=== PATIENT | male | born 1975 | race Caucasian/White ===

== ENCOUNTER → 2019-09-11 09:48 | Outpatient (CLI) | payer OTHER, SELFPAY ==
--- NOTE | ~2019-09-11 | XR_ITS ---
EXAMINATION: XR chest 2V DATE: 09/11/2019 10:11 INDICATION: Tobacco use. TECHNIQUE: Frontal and lateral views of the chest were obtained. COMPARISON: None. FINDINGS: The chest demonstrates clear lungs without pneumonia, pleural effusion, or pneumothorax. Th e heart size is normal. IMPRESSION: 1. No acute cardiopulmonary disease. Reviewed, dictated and finalized at location B. GER BEAUTY
== END ==
PROVIDERS: PCP Emergency Medicine; Visit Provider Emergency Medicine
DX: Z72.0 Tobacco use (principal)
CPT/HCPCS: 71046

== ENCOUNTER → 2022-06-21 09:12 | Outpatient (CLI) | payer OTHER, SELFPAY ==
--- NOTE | ~2022-06-21 | XR_ITS ---
EXAMINATION: XR chest 2V 06/21/2022 09:36 INDICATION: Tobacco use PROCEDURE: 2 view chest COMPARISON: Comparison to multiple prior studies sequentially, with oldest reviewed study dated 09/11. FINDINGS: The lungs are clear. The cardiomediastinal silhouette is within normal limits. There are no pleural effusions. There is no pneumothorax suspected. IMPRESSION: 1: NO ACUTE CARDIOPULMONARY DISEASE. Reviewed, dictated and finalized at location A.
== END ==
PROVIDERS: PCP Emergency Medicine; Visit Provider Emergency Medicine
DX: Z12.2 Encounter for screening for malignant neoplasm of respiratory organs (principal); Z87.891 Personal history of nicotine dependence
CPT/HCPCS: 71046

== ENCOUNTER 2023-06-25 16:58 | Emergency (ER) | payer OTHER, SELFPAY ==
--- NOTE | ~2023-06-25 | XR_ITS ---
EXAM: [id number] DATE: 06/25/2023 18:45 HISTORY: per Dr Rees sunrise view . COMPARISON: Same date at 6:07 PM. FINDINGS: A single sunrise view of the left knee is provided. No sagittally oriented fracture detect ed in the left patella. Enthesophytes along the anterior surface of the patella. IMPRESSION: No sagittal oriented patellar fracture. The patellar injury appears to be limited to a sm all avulsive fragment at the insertion of the quadriceps, as seen in the prior study. Reviewed, dictated and finalized at location K. AINER OPERATOR IMPRESSION: No sagittal oriented patellar fracture. The patellar injury appears to be limited to a small avulsive fragment at the insertion of the quadriceps, as seen in the prior study.
--- NOTE | ~2023-06-25 | XR_ITS ---
EXAM: XR knee LT 3V DATE: 06/25/2023 18:11 HISTORY: left lateral knee pain today ? etiology . COMPARISON: None available. FINDINGS: Normal mineralization. Curvilinear ossific fragment at the insertion of the quadriceps. Naik ggestion of sagittally oriented lucency in the patella in the frontal and oblique views. No lytic or blastic lesion. Joint spaces are maintained. No erosion or periosteal change. Moderate joint effusion . IMPRESSION: Avulsion fracture at the quadriceps insertion. Additional possible sagittally oriented pa tellar fracture. Correlate with point tenderness. Consider a sunrise view of the patella for further evaluation. Reviewed, dictated and finalized at location K. MEASURER IMPRESSION: Avulsion fracture at the quadriceps insertion. Additional possible sagittally oriented patellar fracture. Correlate with point tenderness. Conside r a sunrise view of the patella for further evaluation.
[2023-06-25 17:20] VITALS: BP 141/87; PULSE 91; RESP 16; TEMP 37.4; O2SAT 99
[2023-06-25 17:28] VITALS: BP 141/87; PULSE 91; RESP 16; TEMP 37.4; O2SAT 99
--- NOTE | 2023-06-25 18:31 | PC.NURSE ---
back to xray for additional films per rad. tech.
--- NOTE | 2023-06-25 18:37 | ED.GENADULT ---
HPI - General Adult General Chief complaint: Extremity Injury, Lower Stated complaint: left knee painful Source: patient Mode of arrival: ambulatory Limitations: no limitations History of Present Illness HPI narrative: Patient presents for evaluation of left knee pain. He indicates he has had pain in left knee for about 20 years. He cannot identify any initial precipitating injury or event that caused his symptoms. 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 He states he came home from work today with significant worsening of his pain. At the present time he rates his pain 5/10 in severity but it increases to 10/10 with certain movements. No descriptive quality to the pain. No radicular component, no paresthesias. He is not taking any medication to assist with the symptoms. He contacted his primary care provider and has an appointment with them 2 days from now. He came in today because he knew his PCP would have him get an x ray. Related Data Home Medications Medication Instructions Recorded Confirmed fluoxetine 20 mg capsule mg 06/25/23 Allergies Allergy/AdvReac Type Severity Reaction Status Date / Time naproxen Allergy Severe extreme Unverified 06/25/23 17:06 shortness of breath phenytoin Allergy Intermediate HIVES Unverified 06/25/23 17:06 Review of Systems Review of Systems: CONSTITUTIONAL: Denies fever, chills, or sweats. EYES: Denies visual changes, redness, or discharge. ENT: Denies rhinorrhea, congestion, sore throat, or otalgia. CARDIOVASCULAR: Denies chest pain, palpitations, or edema. RESPIRATORY: Denies cough or dyspnea. GASTROINTESTINAL: Denies abdominal pain, nausea, vomiting, or diarrhea. GENITOURINARY: Denies dysuria or hematuria. SKIN: Denies rash or itching. MUSCULOSKELETAL: Reports left knee pain. Denies back pain NEUROLOGIC: Denies headache, numbness, dizziness, or weakness. PSYCHIATRIC: Denies anxiety or depression. [facility] Past Medical History Medical History (Updated 06/25/23 @ 19:50 by Ermias Malcolm, STEFANIA, NAYLA) Closed fracture of left knee region Closed fracture of left patella Knee fracture, left No significant past medical history Surgical History Surgical History No pertinent past surgical history Family History Family History Mother Family history non-contributory Social History Social History Smoking packs per day: 0.5 Smoking cigarettes per day: 10.0 Smoking status: Current every day smoker Tobacco type: cigarettes Alcohol intake: former Living arrangements: with family Gender identity (if verbalized by the patient): Male Spiritual care concerns: No Exam Narrative: GENERAL: Well-appearing, well-nourished, and in no acute distress. HEAD: Normocephalic, atraumatic. EYES: PERRLA and EOMI. ENT: Nares clear, no rhinorrhea or epistaxis. Mucous membranes moist. Oropharynx without tonsillar hypertrophy exudate or other lesions. Bilateral TMs pearly monae nonbulging NECK: Supple. No adenopathy or masses. No carotid bruits or JVD CHEST: Clear to auscultation. No respiratory distress. No wheezes rales or rhonchi HEART: Regular rate and rhythm. No murmur heard. Normal peripheral pulses. ABDOMEN: Soft, nontender, nondistended, normal active bowel sounds. EXTREMITIES: No tenderness noted in the left knee. Trace swelling present. No crepitus or deformity. Full range of motion intact but extends his left knee with hesitancy secondary to pain SKIN: Warm, dry, no rash. NEURO: No focal deficits. Alert and oriented x3. PSYCH: Normal mood and affect. Course Course Emergency Course: This is a 47-year-old male who presented for evaluation of left knee pain. X-ray suggests avulsion fracture in the left quadriceps tendon region. Provided with
== END 2023-06-25 19:55 | disposition home or self-care (01) ==
PROVIDERS: Emergency Provider Nurse Practitioner; PCP Emergency Medicine
DX: S82.002A Unspecified fracture of left patella, initial encounter for closed fracture (principal); X58.XXXA Exposure to other specified factors, initial encounter; F17.210 Nicotine dependence, cigarettes, uncomplicated
CPT/HCPCS: 73560; 73562; 99214; G0463; L1830

== ENCOUNTER 2024-09-14 15:17 | Emergency (ER) | payer OTHER, SELFPAY ==
--- NOTE | ~2024-09-14 | XR_ITS ---
EXAMINATION: XR foot LT min 3V DATE: 09/14/2024 15:47 INDICATION: Left foot injury. TECHNIQUE: 4 views of left foot were obtained. COMPARISON: None. FINDINGS: Alignment is normal. There is a nondisplaced transverse fracture of tuft of fifth distal ph alanx. There is ankylosis of fifth distal interphalangeal joint. Other joint spaces are normal. There is an enthesophyte of posterior aspect of calcaneal tuberosity. IMPRESSION: 1. Transverse fracture of tuft of fifth distal phalanx. Reviewed, dictated and finalized at location A. R SETTER
[2024-09-14 15:23] VITALS: BP 124/81; PULSE 80; RESP 20; TEMP 36.5; O2SAT 100
--- NOTE | 2024-09-14 15:37 | ED_ITS ---
HPI - Extremity Injury (Lower) General Chief Complaint: Extremity Injury, Lower Stated Complaint: L 5TH TOE INJURY Time Seen by Provider: 09/14/24 15:30 Focused HPI: Patient is a 48 year male who presents to the ER with complaints of injuring his left 5th digit on his foot. He reports he was using a tile cutter to break up ice when he slipped and the tile cutter went into his toe. Patient endorses significant pain and believes he cut his toe off. He reports looking at the injury will cause him to feel nauseated. Patient endorses a history of high blood pressure and prediabetes. He denies any pain in the left ankle, left leg, left calf, or uncontrolled bleeding. GENERAL: Well-appearing, well-nourished, and in acute distress d/t pain. HEAD: Normocephalic, atraumatic. CHEST: Clear to auscultation. ?No respiratory distress. HEART: Regular rate and rhythm.? NEURO: ?Alert and oriented x3. SKIN: 1 cm laceration in between pt's 4th and 5th digits on his L foot. Bleeding controlled. Patient screened in triage and initial orders placed.? ?Additional care and disposition to be based upon?diagnostic testing and treatment. Related Data Home Medications ?Medication ?Instructions ?Recorded ?Confirmed ?Last Taken ?Type No Home Medications 07/02/23 07/02/23 Unknown History Allergies Allergy/AdvReac Type Severity Reaction Status Date / Time naproxen Allergy Severe extreme Verified 09/14/24 15:26 shortness of breath phenytoin Allergy Intermediate HIVES Verified 09/14/24 15:26 [facility] Past Medical History Medical History No significant past medical history Surgical History Surgical History History of back surgery Family History Family History Mother No problems noted. Other Cancer Heart disease Social History Social History Smoking packs per day: 0.5 Smoking cigarettes per day: 10.0 Smoking status: Current every day smoker Tobacco type: cigarettes Alcohol intake: former Substance use type: does not use Lack of Transportation: No Lack of Food: Often True Current Housing: I Do Not Have Housing Concerned About Future Housing: YES Difficulty Paying Gas/Electric Bills: YES Difficulty Paying for Meds: YES Currently Unemployed: No Education: Trade/Vocational Certificate Difficulty w/ Childcare or Family Care: No Living arrangements: with family Occupation/Education: occupation Additional occupation/education comments: self employed- [employer] Gender identity (if verbalized by the patient): Male Spiritual care concerns: No Course Vital Signs Vital signs: Vital Signs Temperature 36.5 C 09/14/24 15:23 Pulse Rate 80 09/14/24 15:23 Respiratory Rate 20 09/14/24 15:23 Blood Pressure 124/81 09/14/24 15:23 Pulse Oximetry 100 09/14/24 15:23 Oxygen Delivery Room Air 09/14/24 15:23 Temperature 36.5 C 09/14/24 15:23 Pulse Rate 80 09/14/24 15:23 Respiratory Rate 20 09/14/24 15:23 Blood Pressure 124/81 09/14/24 15:23 Pulse Oximetry 100 09/14/24 15:23 Oxygen Delivery Room Air 09/14/24 15:23 Discharge Plan Discharge Clinical Impression: Closed fracture of fifth toe of left foot Patient Disposition: Elopement After Seen by Prov Condition: Stable Patient Language: Samoan Prescriptions: No Action No Home Medications Follow-up/Referrals: Jairo Henriquez MD [Primary Care Provider] -
--- OUTSIDE RECORDS SUMMARY | 2024-09-14 16:05 | XMS_ITS | Clinical Summary ---
Author Organization [facility] Address [address] [place] [address] Care Team Providers Care Arboriculture Instructor Name Role Phone Jairo Henriquez MD Primary Care Provider [phone] Source Comments [facility] Affiliates and Associated Physician Practices is amultiple site organization consisting of ambulatory clinics and hospital sitesin [place], [place], [place] and [place]. This disclosure is being madepursuant to the Care Everywhere program and may not contain all information available regarding this patient. Last updated 18.[facility] Allergies Active Allergy Reactions Criticality Noted Date Comments Naproxen Shortness of Breath High 03/02/2019 Phenytoin Itching 03/02/2019 Medications Be aware that medications may not be up to date on this document. Always verify current medications with the patient. No known medications Family History Medical History Relation Name Comments Cancer - Colon Father Cancer - Lung Father Cancer - Stomach Father Cancer - Breast Mother Relation Name Status Comments Father Mother Social History Tobacco Use Types Packs/Day Years Used Date Smoking Tobacco: Every Day Cigarettes Smokeless Tobacco: Current Chew Alcohol Use Standard Drinks/Week Comments Yes 0 (1 standard drink = 0.6 oz pur e alcohol) Socially - once a month Sex and Gender Information Value Date Recorded Sex Assigned at Not on file Gender Identity Not on file Sexual Orientation Not on file Last Filed Vital Signs Vital Sign Reading Time Taken Comments Blood Pressure 154/93 01/20/2020 2:52 PM CDT Pulse 88 01/20/2020 2:52 PM CDT Temperature 36.4 ??C (97.5 ??F) 01/20/2020 2:52 PM CD T Respiratory Rate 18 01/20/2020 2:52 PM CDT Oxygen Saturation 96% 01/20/2020 2:52 PM CDT Inhaled Oxygen Concentration - - Weight - - Height - - Body Mass Index - - Plan of Treatment Health Maintenance Due Date Last Done Comments COLOGUARD (AGES 45-75) - COL ON CA SCREENING 1977 COLON MONITORING 1977 COLONOSCOPY - COLON CA SCREENING 1977 CT COLONOGRAPHY - COLON CA SCREENING 1977 Colorectal Cancer Screening 1977 FIT - COLON CA SCREENING 1977 FLEX SIG - COLON CA SCREENING 1977 LIPID TESTING 1977 HIV SCREENING 1992 DTAP/TDAP/TD VACCINES (1 - Tdap) 1996 HEPATITIS B VACCINE (1 of 3 - 19+ 3-dose series) 1996 PNEUMOCOCCAL VACCINE (1 of 2 - PCV) 1996 COVID-19 VACCINE ( - 2023-2 5 season) 2024 INFLUENZA VACCINE (#1) 2024 DEPRESSION SCREENING 08/19/2024 ZOSTER VACCINE (1 of 2) 11/06/2027 HEPATITIS C SCREENING Completed 01/20/2020 HIB VACCINE Aged Out No longer eligi ble based on patient's age to complete this topic HPV VACCINE Aged Out No longer eligi ble based on patient's age to complete this topic MENINGOCOCCAL (Group B) VACCINE Aged Out No longer eligible based on patient's age to complete this topic MENINGOCOCCAL VACCINE Aged Out No sherin kendra eligible based on patient's age to complete this topic Procedures Procedure Name Priority Date/Time Associated Diagnosis Comments HEPATITIS SCREEN ACUTE Routine 01/20/2020 3:22 PM CDT Rheumatoid factor positive from Last 3 Months or Most Recently Relevant to Health Maintenance Results * HEPATITIS SCREEN ACUTE (01/20/2020 3:22 PM CDT) Hepatitis A Virus Antibody IgM Negative Negative [facility] INSURANCE BILL Hepatitis B Virus Surface Antigen Negative Negative [facility] INSURANCE BILL Hepatitis B Core Virus Antibody IgM Negative Negative [facility] INSURANCE BILL Hepatitis C Antibody <0.1 0.0 - 0.9 s/co ratio [facility] INSURANCE BILL Comment: ? Negative: ? < 0.8 ?Indeterminate: 0.8 - 0.9 ? Positive: ? > 0.9 ? . ?The CDC recommends that a positive HCV antibody result ?be followed up with a HCV Nucleic Acid Amplification ?test (580842). Blood BLOOD SPECIMEN / Unknown 01/20/2020 3:22 PM CDT 01/20/2020 Narrative Resulting Agency Comment Lab Testing performed at: [facility] [address] ??[facility] [id number] Bob العراقي MD LAB - CHEMISTRY OR DERABLES [facility] INSURANCE BILL [address] [place] [address] from Last 3 Months or Most Recently Relevant to Health Maintenance Care Teams Arboriculture Instructor Relationship Specialty Start Date End Date Jairo Henriquez MD [facility] [address] [facility] [address] [place], [place] [id number] PCP - General Family Medicine 05/26/19
--- OUTSIDE RECORDS SUMMARY | 2024-09-14 16:05 | XMS_ITS | Patient Health Summary ---
Author Organization [facility] Address [address] [place] [address] Care Team Providers Care Records Management Associate Name Role Phone Jairo Henriquez MD Primary Care Provider [phone] [facility],non-owned Affiliates and Associated Physician Practices is amultiple site organization consisting of ambulatory clinics and hospital sitesin [place], [place], [place] and [place]. This disclosure is being madepursuant to the Care Everywhere program and may not contain all information available regarding this patient. Last updated 18.[facility] Allergies * Naproxen(Shortness of Breath) -High Criticality * Phenytoin(Itching) Medications Be aware that medications may not be up to date on this document. Always verify current medications with the patient. No known medications Social History Tobacco Use Types Packs/Day Years [...] - - Body Mass Index - - Procedures * ANTHONY BLOOD SCREEN W/REFLEX TITER(Performed 01/20/2020) Performed for Rheumatoid factor positive * COMPLEMENT C3 C4 PANEL(Performed 01/20/2020) Performed for Rheumatoid factor positive * ANGIOTENSIN CONVERTING ENZYME BLOOD(Performed 01/20/2020) Performed for Rheumatoid factor positive * HEPATITIS SCREEN ACUTE(Performed 01/20/2020) Performed for Rheumatoid factor positive * CYCLIC CITRUL PEPTIDE ANTIBODY IGG/IGA (CCP)(Performed 01/20/2020) Performed for Rheumatoid factor positive * RHEUMATOID FACTOR BLOOD QUANTITATIVE(Performed 01/20/2020) Performed for Rheumatoid factor positive * C-REACTIVE PROTEIN(Performed 01/20/2020) Performed for Rheumatoid factor positive * ERYTHROCYTE SEDIMENTATION RATE(Performed 01/20/2020) Performed for Rheumatoid factor positive Results * CYCLIC CITRUL PEPTIDE ANTIBODY IGG/IGA (CCP) (01/20/2020 3:22 PM CDT) CCP Antibodies IgG/IgA 6 0 - 19 units [facility] INSURANCE BILL Comment: ? Negative ? <20 ? Weak positive ?20 - 39 ? Moderate positive ??40 - 59 ? Strong positive ?>59 Blood BLOOD SPECIMEN / Unknown 01/20/2020 3:22 PM CDT 01/20/2020 Narrative Resulting Agency Comment Lab Testing performed at: [address] ??[facility] [id number] Bob العراقي MD LAB - SEROLOGY ORD ERABLES Performing Organization Address [facility] de Phone Number [facility] INSURANCE BILL [address] [place] [address] * (ABNORMAL) RHEUMATOID FACTOR BLOOD QUANTITATIVE (01/20/2020 3:22 PM CDT) Pathologist [facility] Rheumatoid Factor 222.5(H) 0.0 - 13.9 IU/mL [facility] INSURANCE BILL Comment: Results confirmed on dilution. Blood BLOOD SPECIMEN / Unknown 01/20/2020 3:22 PM CDT 01/20/2020 Narrative Resulting Agency Comment Lab Testing performed at: [facility] [address] ??[facility] [id number] Bob العراقي MD LAB - CHEMISTRY OR DERABLES Performing Organization Address [facility] de Phone Number [facility] INSURANCE BILL [address] [place] [address] * C-REACTIVE PROTEIN (01/20/2020 3:22 PM CDT) Pathologist [facility] C-Reactive Protein 2 0 - 10 mg/L [facility] INSURANCE BILL Blood BLOOD SPECIMEN / Unknown 01/20/2020 3:22 PM CDT 01/20/2020 Narrative Resulting Agency Comment Lab Testing performed at: [facility] [address] ??[facility] [id number] Bob العراقي MD LAB - CHEMISTRY OR DERABLES Performing Organization Address [facility] de Phone Number [facility] INSURANCE BILL [address] [place] [address] * ANTHONY BLOOD SCREEN W/REFLEX TITER (01/20/2020 3:22 PM CDT) ANTHONY Negative [facility] INSURANCE BILL Comment: ?Negative ?? <1:80 ?Borderline ??1:80 ?Positive ?? >1:80 Blood BLOOD SPECIMEN / Unknown 01/20/2020 3:22 PM CDT 01/20/2020 Narrative Resulting Agency Comment Lab Testing performed at: [facility] [address] ??[facility] [id number] Bob العراقي MD LAB - CHEMISTRY OR DERABLES Performing Organization Address [facility] Co de Phone Number [facility] INSURANCE BILL [address] [place] [address] * ANGIOTENSIN CONVERTING ENZYME BLOOD (01/20/2020 3:22 PM CDT) Angiotensin-Con verting Enzyme 54 14 - 82 U/L [facility] INSURANCE BILL Blood BLOOD SPECIMEN / Unknown 01/20/2020 3:22 PM CDT 01/20/2020 Narrative Resulting Agency Comment Lab Testing performed at: [facility] [employer] [address] ??[facility] [id number] Bob العراقي MD LAB - CHEMISTRY OR DERABLES Performing Organization Address [facility] de Phone Number [facility] INSURANCE BILL [address] [place] [address] * ERYTHROCYTE SEDIMENTATION RATE (01/20/2020 3:22 PM CDT) Erythrocyte Sedimentation Rate Westergren 14 0 - 15 mm/hr [facility] INSURANCE BILL Blood BLOOD SPECIMEN / Unknown 01/20/2020 3:22 PM CDT 01/20/2020 Narrative Resulting Agency Comment Lab Testing performed at: [facility] [employer] [address] ??[facility] [id number] Bob العراقي MD LAB - HEMATOLOGY O RDERABLES Performing Organization Address [facility] Co de Phone Number [facility] INSURANCE BILL [address] [place] [address] * COMPLEMENT C3 C4 PANEL (01/20/2020 3:22 PM CDT) Pathologist [facility] Complement C3 106 82 - 167 mg/dL [facility] INSURANCE BILL Complement C4 23 14 - 44 mg/dL [facility] INSURANCE BILL Blood BLOOD SPECIMEN / Unknown 01/20/2020 3:22 PM CDT 01/20/2020 Narrative Resulting Agency Comment Lab Testing performed at: [facility] [address] [facility] [address] ??[facility] [id number] Bob العراقي MD LAB - CHEMISTRY OR DERABLES Performing Organization Address [facility] Co de Phone Number [facility] INSURANCE BILL [address] [place] [address] * HEPATITIS SCREEN ACUTE (01/20/2020 3:22 PM CDT) Pathologist [facility] Hepatitis A Virus Antibody IgM Negative Negative [...] with a HCV Nucleic Acid Amplification ?test ([id number]). Blood BLOOD SPECIMEN / Unknown 01/20/2020 3:22 PM CDT 01/20/2020 Narrative Resulting Agency Comment [facility]: [facility] [address] ??[facility] [id number] Bob العراقي MD LAB - CHEMISTRY OR DERABLES [facility] [address] [place] [address] Care Teams Records Management Associate Relationship Specialty Start Date End Date Jairo Henriquez MD [address] [place] [id number] PCP - General Family Medicine 05/26/19
--- OUTSIDE RECORDS SUMMARY | 2024-09-14 16:05 | XMS_ITS | Referral Summary ---
Author Organization [facility] Address [address] [place] [address] Care Team Providers Care Manufacturing Quality Inspector Name Role Phone Jairo Henriquez MD Primary Care Provider [phone] Source Comments [facility] [employer],non-[facility] Affiliates and Associated Physician Practices is amultiple site organization consisting of ambulatory clinics and hospital sitesin [place], [place] and [place]. This disclosure is being madepursuant to the Care Everywhere program and may not contain all information available regarding this patient. Last updated 18.[facility] [employer] Allergies Active Allergy Reactions Criticality Noted Date [...] Mass Index - - Plan of Treatment Not on file Procedures Procedure Name Priority Date/Time Associated Diagnosis [...] with a HCV Nucleic Acid Amplification ?test ([id number]). Blood BLOOD SPECIMEN / Unknown 01/20/2020 3:22 PM CDT 01/20/2020 Narrative Resulting Agency Comment Lab Testing performed at: [facility] [address] ??[facility] [id number] Bob العراقي MD LAB - CHEMISTRY OR DERABLES [facility] INSURANCE BILL [address] [place] [address] from Last 3 Months or Most Recently Relevant to Health Maintenance Care Teams Manufacturing Quality Inspector Relationship Specialty Start Date End Date Jairo Henriquez MD [address] [facility] [address] [place] [address] PCP - General Family Medicine 05/26/19
--- OUTSIDE RECORDS SUMMARY | 2024-09-14 16:05 | XMS_ITS | Clinical Summary ---
Author Organization [facility] Address [address] [place] [address]. [place], [place] [address] [place] [address] Care Team Providers Care Logging Specialist Name Role Phone None, Provider MD Primary Care Provider Unavaila ble Allergies Active Allergy Reactions Criticality Noted Date Comments Phenytoin Itching 03/02/2019 Naproxen Shortness of Breath High 03/02/2019 Medications No known medications Family History Medical History Relation Comments Cancer Father Hypertension Father Hypertension Mother Relation Status Comments Father Alive Mother Alive Social History Tobacco Use Types Packs/Day Years Used Date Smoking Tobacco: Every Day Cigarettes Smokeless Tobacco: Never Alcohol Use Standard Drinks/Week Comments No 0 (1 standard drink = 0.6 oz pur e alcohol) AUDIT-C Answer Date Recorded Frequency of Alcohol Consumption Never 03/19/2019 Average Number of Drinks Not on file 019 Frequency of Binge Drinking Not on file 08/2018 Sex and Gender Information Value Date Recorded Sex Assigned at Not on file Legal Sex Male 4:17 PM CDT Gender Identity Not on file Sexual Orientation Not on file Last Filed Vital Signs Vital Sign Reading Time Taken Comments Blood Pressure 138/71 03/02/2019 1:32 PM CDT Pulse 72 03/02/2019 1:32 PM CDT Temperature 36.8 ??C (98.2 ??F) 03/02/2019 1:32 PM CD T Respiratory Rate 18 03/02/2019 1:32 PM CDT Oxygen Saturation 99% 03/02/2019 1:35 PM CDT Inhaled Oxygen Concentration - - Weight 81.6 kg (180 lb) 03/02/2019 1:32 PM CDT Height 180.3 cm (5' 11 ) 03/02/2019 1:32 PM CDT Body Mass Index 25.1 03/02/2019 1:32 PM CDT Plan of Treatment Health Maintenance Due Date Last Done Comments Colorectal Cancer Screening Colonoscopy (10 Years) 1977 Annual Physical 1980 Pneumococcal Vaccine: Pediat rics (0 to 5 Years) and At-Risk Patients (6 to 64 Years) (1 of 2 - PCV) 11/06/1983 Hepatitis C 11/06/1995 DTaP, Tdap and Td Vaccines ( 1 - Tdap) 1996 Hepatitis B Vaccines (1 of 3 - 19+ 3-dose series) 1996 COVID-19 Vaccine ( - 2023-2 5 season) 2024 Influenza Adult (#1) 2024 Meningococcal B Vaccine Aged Out No l onger eligible based on patient's age to complete this topic Meningococcal Vaccine Aged Out No sherin kendra eligible based on patient's age to complete this topic RSV Immunizations Under 20 Months Aged Out No longer eligible based on patient's age to complete this topic Insurance MEDICAID Care Teams Logging Specialist Relationship Specialty Start Date End Date None, Provider, PCP - General 03/02/19
--- OUTSIDE RECORDS SUMMARY | 2024-09-14 16:05 | XMS_ITS | Clinical Summary ---
Author Organization [facility] Address [address] [place] [address] Care Team Providers Care Lawn Care Worker Name Role Phone No, Physician Primary Care Provider [phone] Jairo Henriquez MD Unavailable Allergies Active Allergy Reactions Criticality Noted Date Comments Phenytoin Rash Medium 04/04/2021 Naproxen Other (See comments),Shortness of breath Low Reaction: Itching, , Reaction: Trouble Breathing, Naproxen Shortness of breath High 04/04/2021 Phenytoin Other (See comments),Hives Low Reaction: Rash, , Reaction: Hives, , Reaction: Hives, Medications hydroxychloroqu ine (PLAQUENIL) 200 mg tablet take 1 tablet by oral route 2 times every day 60 2 10/29/2016 Active lidocaine (LIDODERM) 5 %Indications:Pa in Place 1 patch on the skin daily Use patch for 12 hours on, 12 hours off. Discard after each use 7 patch 04/04/2021 Active cyclobenzaprine (FLEXERIL) 10 mg tablet Take 1 tablet (10 mg total) by mouth 3 (three) times a day as needed for muscle spasms for up to 20 doses 20 tablet 04/04/2021 Active Medical History Medical History Date Comments Hx Other Medical herniated lumba r discs s/p surgery Hx Other Medical head injury/hem atoma Hx Other Medical rheumatoid arth ritis Family History Medical History Relation Name Comments Other Other Family history of rheumatoid arthritis - 2 bothers; Relation Name Status Comments Other Social History Tobacco Use Types Packs/Day Years Used Date Smoking Tobacco: Heavy Smoker Comments:Smoking History Pac ks/day: 15 Cigarettes Alcohol Use Standard Drinks/Week Comments Yes 0 (1 standard drink = 0.6 oz pur e alcohol) Personal Safety Answer Date Recorded Getting School Help Needed Not on file 10/18 Sex and Gender Information Value Date Recorded Sex Assigned at Not on file 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 Gender Identity Not on file Sexual Orientation Not on file Obstetrics History Last Filed Vital Signs Vital Sign Reading Time Taken Comments Blood Pressure 135/77 04/04/2021 1:32 PM CDT Pulse 81 04/04/2021 1:32 PM CDT Temperature 36.7 ??C (98 ??F) 04/04/2021 1:32 PM CDT Respiratory Rate 18 04/04/2021 1:32 PM CDT Oxygen Saturation 96% 04/04/2021 1:32 PM CDT Inhaled Oxygen Concentration - - Weight 84.5 kg (186 lb 4.6 oz) 04/04/2021 1:32 P M CDT Height 180.3 cm (5' 11 ) 04/04/2021 1:32 PM CDT Body Mass Index 25.98 04/04/2021 1:32 PM CDT Plan of Treatment Not on file Insurance Care Teams Lawn Care Worker Relationship Specialty Start Date End Date No, Physician PCP - General 04/04/21 Jairo Henriquez MD 04/04/21
--- OUTSIDE RECORDS SUMMARY | 2024-09-14 16:05 | XMS_ITS | Referral Summary ---
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
[2024-09-14] MEDS: HYDROcodone/acetaminophen (*CRX) 5-325 MG TABLET 1 TAB PO (17:01)
--- OUTSIDE RECORDS SUMMARY | 2024-09-14 19:47 | XMS_ITS | Clinical Summary ---
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
--- OUTSIDE RECORDS SUMMARY | 2024-09-14 19:47 | XMS_ITS | Clinical Summary ---
Author Organization [facility] Address [address] [place] [address] Care Team Providers Care Travel Occupational Therapist Name Role Phone Jairo Henriquez MD Primary Care Provider [phone] Source Comments [facility] Affiliates and Associated Physician Practices is amultiple site organization consisting of ambulatory clinics and hospital sitesin [place], [place], [place] and [place]. This disclosure is being madepursuant to the Care Everywhere program and may not contain all information available regarding this patient. Last updated 18.[facility] Allergies Active Allergy Reactions Criticality Noted Date [...] with a HCV Nucleic Acid Amplification ?test (544281). Blood BLOOD SPECIMEN / Unknown 01/20/2020 3:22 PM CDT 01/20/2020 Narrative Resulting Agency Comment Lab Testing performed at: [facility] [address] [facility] ??[facility]ly [facility] [phone] Bob العراقي MD LAB - CHEMISTRY OR DERABLES [facility] INSURANCE BILL [address] [place] [address] from Last 3 Months or Most Recently Relevant to Health Maintenance Care Teams Travel Occupational Therapist Relationship Specialty Start Date End Date Jairo Henriquez MD [facility] [address] [facility] [address] [place], [place] [id number] PCP - General Family Medicine 05/26/19
--- OUTSIDE RECORDS SUMMARY | 2024-09-14 19:47 | XMS_ITS | Referral Summary ---
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
--- OUTSIDE RECORDS SUMMARY | 2024-09-14 19:47 | XMS_ITS | Patient Health Summary ---
Author Organization [facility] Address [address] [facility] [place] [address] Care Team Providers Care Data Collector Name Role Phone Jairo Henriquez MD Primary Care Provider [phone] Note from [facility],non-owned Affiliates and Associated Physician Practices is amultiple site organization consisting of ambulatory clinics and hospital sitesin [place], [place], [place] and [place]. This disclosure is being madepursuant to the Care Everywhere program and may not contain all information available regarding this patient. Last updated 18.[facility] Allergies * Naproxen(Shortness of Breath) -High Criticality [...] Antibodies IgG/IgA 6 0 - 19 units [facility] INSURANCE BILL Comment: ? Negative ? <20 ? Weak positive ?20 - 39 ? Moderate positive ??40 - 59 ? Strong positive ?>59 Blood BLOOD SPECIMEN / Unknown 01/20/2020 3:22 PM CDT 01/20/2020 Narrative Resulting Agency Comment Lab Testing performed at: [address] ??[facility] [id number] Bob العراقي MD LAB - SEROLOGY ORD ERABLES Performing Organization Address [facility] de Phone Number [facility] INSURANCE BILL [address] [place] [address] * (ABNORMAL) RHEUMATOID FACTOR BLOOD QUANTITATIVE (01/20/2020 3:22 PM CDT) Pathologist [facility] Rheumatoid Factor 222.5(H) 0.0 - 13.9 IU/mL [facility] INSURANCE BILL Comment: Results confirmed on dilution. Blood BLOOD SPECIMEN / Unknown 01/20/2020 3:22 PM CDT 01/20/2020 Narrative Resulting Agency Comment Lab Testing performed at: [facility] [place] [address] ??[facility] [id number] Bob العراقي MD LAB - CHEMISTRY OR DERABLES Performing Organization Address [facility] de Phone Number [facility] INSURANCE BILL [address] [place] [address] * C-REACTIVE PROTEIN (01/20/2020 3:22 PM CDT) Pathologist [facility] C-Reactive Protein 2 0 - 10 mg/L [facility] INSURANCE BILL Blood BLOOD SPECIMEN / Unknown 01/20/2020 3:22 PM CDT 01/20/2020 Narrative Resulting Agency Comment Lab Testing performed at: [email or web address] [address] ??[facility] [id number] Bob العراقي MD LAB - CHEMISTRY OR DERABLES Performing Organization Address [facility] de Phone Number [facility] INSURANCE BILL [address] [place] [address] * ANTHONY BLOOD SCREEN W/REFLEX TITER (01/20/2020 3:22 PM CDT) ANTHONY Negative [facility] INSURANCE BILL Comment: ?Negative ?? <1:80 ?Borderline ??1:80 ?Positive ?? >1:80 Blood BLOOD SPECIMEN / Unknown 01/20/2020 3:22 PM CDT 01/20/2020 Narrative Resulting Agency Comment Lab Testing performed at: [facility] [place] [address] ??[facility] [phone] Bob العراقي MD LAB - CHEMISTRY OR DERABLES Performing Organization Address [facility] Co de Phone Number [facility] INSURANCE BILL [address] [place] [address] * ANGIOTENSIN CONVERTING ENZYME BLOOD (01/20/2020 3:22 PM CDT) Angiotensin-Con verting Enzyme 54 14 - 82 U/L [facility] INSURANCE BILL Blood BLOOD SPECIMEN / Unknown 01/20/2020 3:22 PM CDT 01/20/2020 Narrative Resulting Agency Comment Lab Testing performed at: [facility] [address] ??[facility] [id number] Bob العراقي MD LAB - CHEMISTRY OR DERABLES Performing Organization Address [facility] de Phone Number [facility] INSURANCE BILL [address] [place] [address] * ERYTHROCYTE SEDIMENTATION RATE (01/20/2020 3:22 PM CDT) Erythrocyte Sedimentation Rate Westergren 14 0 - 15 mm/hr [facility] INSURANCE BILL Blood BLOOD SPECIMEN / Unknown 01/20/2020 3:22 PM CDT 01/20/2020 Narrative Resulting Agency Comment Lab Testing performed at: [facility] [address] ??[facility] [id number] Bob العراقي MD LAB - HEMATOLOGY O RDERABLES Performing Organization Address [facility] Co de Phone Number [facility] INSURANCE BILL [address] [place] [address] * COMPLEMENT C3 C4 PANEL (01/20/2020 3:22 PM CDT) Pathologist [facility] Complement C3 106 82 - 167 mg/dL [facility] INSURANCE BILL Complement C4 23 14 - 44 mg/dL [facility] INSURANCE BILL Blood BLOOD SPECIMEN / Unknown 01/20/2020 3:22 PM CDT 01/20/2020 Narrative Resulting Agency Comment Lab Testing performed at: [facility] [place] [address] [facility] ??[facility] [phone] Bob العراقي MD LAB - CHEMISTRY OR DERABLES Performing Organization Address [facility] Co de Phone Number [facility] INSURANCE BILL [address] [place] [address] * HEPATITIS SCREEN ACUTE (01/20/2020 3:22 PM CDT) Pathologist [facility] Hepatitis A Virus Antibody IgM Negative Negative [...] with a HCV Nucleic Acid Amplification ?test ([id number]). Blood BLOOD SPECIMEN / Unknown 01/20/2020 3:22 PM CDT 01/20/2020 Narrative Resulting Agency Comment [facility]: [facility] [address] [facility] ??[facility] [id number] Bob العراقي MD LAB - CHEMISTRY OR DERABLES [facility] [address] [place] [address] Care Teams Data Collector Relationship Specialty Start Date End Date Jairo Henriquez MD [address] [place] [address] PCP - General Family Medicine 05/26/19
--- OUTSIDE RECORDS SUMMARY | 2024-09-14 19:47 | XMS_ITS | Clinical Summary ---
Author Organization [facility] Address [address] [place] [address]. [place], [place] [address] [place] [address] Care Team Providers Care Hoop Punch Operator Helper Name Role Phone None, Provider MD Primary [...] complete this topic Insurance MEDICAID Care Teams Hoop Punch Operator Helper Relationship Specialty Start Date End Date None, Provider, PCP - General 03/02/19
--- OUTSIDE RECORDS SUMMARY | 2024-09-14 19:47 | XMS_ITS | Referral Summary ---
Author Organization [facility] Address [address] [place] [address] Care Team Providers Care Manager Hris Name Role Phone Jairo Henriquez MD Primary Care Provider [phone] Source Comments [facility] Affiliates and Associated Physician Practices is amultiple site organization consisting of ambulatory clinics and hospital sitesin [place], [place], [place] and [place]. This disclosure is being madepursuant to the Care Everywhere program and may not contain all information available regarding this patient. Last updated 18.[facility] Allergies Active Allergy Reactions Criticality Noted Date [...] with a HCV Nucleic Acid Amplification ?test ([id number]). Blood BLOOD SPECIMEN / Unknown 01/20/2020 3:22 PM CDT 01/20/2020 Narrative Resulting Agency Comment Lab Testing performed at: [facility] [place] [address] ??[facility] [id number] Bob العراقي MD LAB - CHEMISTRY OR DERABLES [facility] INSURANCE BILL [address] [place] [address] from Last 3 Months or Most Recently Relevant to Health Maintenance Care Teams Manager Hris Relationship Specialty Start Date End Date Jairo Henriquez MD [address] [facility] [address] [place] [address] PCP - General Family Medicine 05/26/19
--- NOTE | 2024-09-14 20:13 | PC.NURSE ---
pt calls scrub technician Claudia to room and states they are leaving ED because they have been waiting too long. scrub technician reports to this RN pt walking out with steady gait and no resp. distress. provider notified of pt leaving.
== END 2024-09-14 20:05 | disposition left against medical advice (07) ==
PROVIDERS: Emergency Provider Emergency Medicine; PCP Emergency Medicine
DX: S92.532A Displaced fracture of distal phalanx of left lesser toe(s), initial encounter for closed fracture (principal); Z23 Encounter for immunization; I10 Essential (primary) hypertension; E11.9 Type 2 diabetes mellitus without complications; F17.210 Nicotine dependence, cigarettes, uncomplicated; W27.8XXA Contact with other nonpowered hand tool, initial encounter
CPT/HCPCS: 73630; 90471; 99283; A9270